=== PATIENT | male | born 1960 | race Caucasian/White ===

== ENCOUNTER 2017-11-17 11:16 | Day surgery (SDC) | END 2017-11-17 13:30 | disposition home or self-care (01) ==

== ENCOUNTER 2023-05-20 08:33 | Day surgery (SDC) | payer OTHER ==
[~2023-05-20] VITALS: Ht 195.6 cm; Wt 95.6 kg
[2023-05-20] VITALS (17 sets, daily range): BP systolic 100–130; BP diastolic 71–89
[~2023-05-20 08:33] MED LIST: ALEN70; ASPI325; Allergy Medicat25 MG PO; CALCIUM 1,0001 EACH PO; COLE1 PO; FENO145 PO; FISH1000 PO; HYDACE10B PO; HYDCHL25; HYDR1TAB94 PO; LISI5 PO; MULVITMIND PO; Magnesium500 MG PO; Mobic15 MG PO; ONDA8ODT MM; POTASSIUM99 M1 PO; TURMERIC500 MG PO; UBID10 PO; ZINC15; [UNRECOGNIZED DRUG - MIXTURE]
[2023-05-20] MEDS ORDERED: LISI5 PO (09:06)
[2023-05-20] MEDS ORDERED: TAMS.4ER PO (09:07)
--- NOTE | 2023-05-20 09:49 | NUR ---
05/20/23 0949 Angy Gary HISTORY, CHART, MEDICATIONS AND ALLERGIES REVIEWED BEFORE START OF PROCEDURE. PATIENT CONFIRMS NPO STATUS AND AGREES WITH SCHEDULED PROCEDURE. 3-LEAD EKG REVIEWED WITH PHYSICIAN PRIOR TO START OF PROCEDURE. MONITOR INTACT WITH CONTINUOUS PULSE OXIMETRY,CAPNOGRAPHY, 3-LEAD EKG, INTERMITTENT BP. SUPPLEMENTAL O2 TO BE TITRATED THROUGHOUT PROCEDURE TO MAINTAIN O2 SATURATION ABOVE 90%. PATIENT DETERMINED TO BE ASA APPROPRIATE FOR PROPOFOL SEDATION PRIOR TO START OF PROCEDURE BY .
--- NOTE | 2023-05-20 10:38 | NUR ---
Discharge instructions reviewed with patient. Patient verbalizes understanding. Copy given to patient to take home. Patient States Post-Procedure ride home has been arranged. Discharged via wheelchair to private car for ride home.
== END 2023-05-20 10:46 | disposition home or self-care (01) ==
LOC: ORSCMMR 08:33 → ORD 09:30 → ORSCMMR 10:46
PROVIDERS: Internal Medicine Gastroenterology
PROC: 0DJD8ZZ Inspection of Lower Intestinal Tract, Via Natural or Artificial Opening Endoscopic (ICD-10-PCS; principal; 2023-05-20 09:30)
DX: Z12.11 Encounter for screening for malignant neoplasm of colon (principal); Z80.0 Family history of malignant neoplasm of digestive organs; E78.00 Pure hypercholesterolemia, unspecified; I10 Essential (primary) hypertension; Z79.899 Other long term (current) drug therapy
CPT/HCPCS: J2704; J7120